=== PATIENT | female | born 1970 | race Caucasian/White ===

== ENCOUNTER → 2018-05-14 | Outpatient (CLI) | payer BC ==
--- NOTE | 2018-05-17 08:48 | MM ---
Reason for exam: screening (asymptomatic). Last mammogram was performed 1 year and 2 months ago. History: Patient is nulliparous. Family history of breast cancer in grandmother at age 70. Took hormonal contraceptives for 13 years beginning at age 14. Took progesterone for 5 years beginning at age 19. Physical Findings: A clinical breast exam by your physician is recommended on an annual basis and results should be correlated with mammographic findings. MG 3D Screening Mammo W/Cad Bilateral CC and MLO view(s) were taken. Prior study comparison: March 16, 2017, bilateral MG screening mammo w CAD. March 01, 2016, right breast MG work up mamm w CAD RT. The breast tissue is heterogeneously dense. This may lower the sensitivity of mammography. No significant changes when compared with prior studies. ASSESSMENT: Negative, BI-RAD 1 RECOMMENDATION: Routine screening mammogram of both breasts in 1 year.
== END | disposition home or self-care (01) ==
LOC: RADMAMWWP 13:45
PROVIDERS: ATTEND Obstetrics & Gynecology
DX: Z12.31 Encounter for screening mammogram for malignant neoplasm of breast (principal); Z80.3 Family history of malignant neoplasm of breast
CPT/HCPCS: 77063; 77067

== ENCOUNTER → 2021-05-09 | Outpatient (CLI) | payer OTHER ==
--- NOTE | 2021-05-09 17:00 | ECHOF ---
Referral Reason:R55 syncope and collapse MEASUREMENTS -------- HEIGHT: 175.3 cm WEIGHT: 65.8 kg BP: IVSd: 0.9 cm (0.6 - 1.1) LVIDd: 4.7 cm (3.9 - 5.3) LVPWd: 0.8 cm (0.6 - 1.1) EDV(Teich): 103 ml IVSs: 1.1 cm LVIDs: 3.1 cm LVPWs: 1.4 cm %IVS Thck: 34 % ESV(Teich): 38 ml EF(Teich): 63 % %FS: 34 % SV(Teich): 65 ml LA Diam: 2.4 cm (2.7 - 3.8) RVIDd: 2.4 cm (< 3.3) Ao Diam: 2.6 cm (2.0 - 3.7) LA Diam: 3.6 cm (2.7 - 3.8) AV Cusp: 1.8 cm (1.5 - 2.6) EPSS: 0.3 cm MV E Jose Miguel: 0.53 m/s MV DecT: 220 ms MV Dec [place]: 2.4 m/s MV A Jose Miguel: 0.66 m/s MV E/A Ratio: 0.81 MV PHT: 64 ms TR Vmax: 2.27 m/s TR maxP.57 mmHg RAP: 5.00 mmHg RVSP: 25.57 mmHg MV EF SLOPE: 94.34 mm/s (70 - 150) MV EXCURSION: 28.76 mm (> 18.000) FINDINGS -------- Sinus rhythm. This was a technically good study. The left ventricular size is normal. Left ventricular wall thickness is normal. Overall left vent ricular systolic function is mildly impaired with, an EF between 45 - 50 %. Posterior hypokinesis Inferior Hypokinesis The right ventricle is normal in size. The left atrial size is normal. The right atrial size is normal. The aortic valve is trileaflet, and appears structurally normal. No aortic stenosis or regurgitation. Mild mitral regurgitation is present. Mild tricuspid regurgitation present. Right ventricular systolic pressure is normal at < 35 mmHg. There is no pulmonic regurgitation present. There is no pericardial effusion. CONCLUSIONS -------- 1. The left ventricular size is normal. 2. Left ventricular wall thickness is normal. 3. Overall left ventricular systolic function is mildly impaired with, an EF between 45 - 50 %. 4. Posterior hypokinesis 5. Inferior Hypokinesis 6. The right ventricle is normal in size. 7. The left atrial size is normal. 8. The right atrial size is normal. 9. The aortic valve is trileaflet, and appears structurally normal. No aortic stenosis or regurgitati on. 10. Mild mitral regurgitation is present. 11. Mild tricuspid regurgitation present. 12. There is no pericardial effusion. INDUSTRIAL DESIGN INTERN: Meghan Briggs RDCS
== END | disposition home or self-care (01) ==
LOC: RADECHMAIN 13:12
PROVIDERS: ATTEND Family Medicine
DX: I08.1 Rheumatic disorders of both mitral and tricuspid valves (principal)
CPT/HCPCS: 93306

== ENCOUNTER → 2021-06-21 | Outpatient (CLI) | payer OTHER ==
[2021-06-21 17:13] LABS: Amylase 71 U/L (23-121); C Reactive Protein <0.30 mg/dL (0.00-0.80); Lipase 74 U/L (14-63)
[2021-06-21 18:24] LABS: Rheumatoid Factor, Qnt <10 IU/mL (0-15)
[2021-06-21 18:38] LABS: Magnesium 2.4 mg/dL (1.5-2.4)
[2021-06-21 20:52] LABS: Insulin Level 10.8 mIU/mL (3.0-25.0)
== END | disposition home or self-care (01) ==
LOC: LABWHC1 07:57
PROVIDERS: ATTEND Nurse Practitioner Adult Health
DX: M06.9 Rheumatoid arthritis, unspecified (principal); R63.4 Abnormal weight loss; R25.1 Tremor, unspecified; R55 Syncope and collapse; H53.8 Other visual disturbances
CPT/HCPCS: 36415; 82024; 82150; 82306; 82533; 82607; 82626; 82746; 83525; 83690; 83735; 85652; 86038; 86039; 86140; 86431; 86592; 86618

== ENCOUNTER 2021-06-27 11:14 | Emergency (ER) | payer OTHER ==
[2021-06-27] MEDS ORDERED: SODIUM CHLORIDE 0.9% 1,000 ML IV STA (13:52)
[2021-06-27] MEDS ORDERED: SODIUM CHLORIDE 0.9% 500 ML 500 ML IV STA (13:52)
--- NOTE | 2021-06-27 13:57 | ED ---
General Adult HPI - General Source: patient, family, RN notes reviewed Limitations: no limitations <Norman Mae - Last Filed: 06/27/21 15:40> <Romie Woods - Last Filed: 06/27/21 17:19> - General Chief complaint: Recheck/Abnormal Lab/Rx Stated complaint: post facial injury/vomiting Time Seen by Provider: 06/27/21 13:39 - History of Present Illness Initial comments: This is a 50-year-old female presents emergency Department chief complaint of facial pain, nausea vomiting. Patient states that she's been having pain ever since she had a fracture from fall in April. Patient states she recently had extraction of her front [address] Melo on . Patient states that she did have increasing symptoms initially started her root canal prior to this. Patient developed a fever today that she was not aware of prior arrival. Patient states she's had increasing nausea with dry heaving today. She complains of epigastric discomfort after her episode. Patient had no sick contacts. She states she's is very weak feeling, states she's not been eating and drinking well. (Norman Mae) - Related Data Home Medications Medication Instructions Recorded Confirmed Guaifen/Phenyleph/Acetaminophn 1 tab PO Q6H PRN 06/27/21 06/27/21 [Tylenol Sinus Severe Caplet] Previous Rx's Medication Instructions Recorded Cephalexin [Keflex] 500 mg PO QID #40 cap 06/27/21 Allergies Allergy/AdvReac Type Severity Reaction Status Date / Time amoxicillin Allergy Severe Rash/Hives, Verified 06/27/21 15:57 Swelling of mouth and throat Penicillins Allergy Severe Rash/Hives, Verified 06/27/21 15:57 Swelling of mouth and throat ibuprofen AdvReac Unknown Verified 06/27/21 11:54 Sulfa (Sulfonamide AdvReac Nausea & Verified 06/27/21 11:54 Antibiotics) Vomiting Review of Systems ROS Other: All systems not noted in ROS Statement are negative. <Norman Mae - Last Filed: 06/27/21 15:40> ROS Other: All systems not noted in ROS Statement are negative. <Romie Woods - Last Filed: 06/27/21 17:19> ROS Statement: Those systems with pertinent positive or pertinent negative responses have been documented in the HPI. Past Medical History Past Medical History: No Reported History History of Any Multi-Drug Resistant Organisms: None Reported Past Surgical History: Back Surgery Past Psychological History: No Psychological Hx Reported Smoking Status: Never smoker Past Alcohol Use History: None Reported Past Drug Use History: None Reported <Norman Mea - Last Filed: 06/27/21 15:40> General Exam Limitations: no limitations General appearance: alert, in no apparent distress Head exam: Present: atraumatic, normocephalic, normal inspection Eye exam: Present: normal appearance, PERRL, EOMI. Absent: scleral icterus, conjunctival injection, periorbital swelling ENT exam: Present: mucous membranes moist. Absent: normal oropharynx (Recent tooth extraction upper 7 and 8, no significant bleeding or purulent drainage noted) Neck exam: Present: normal inspection, full ROM. Absent: tenderness, meningismus, lymphadenopathy Respiratory exam: Present: normal lung sounds bilaterally. Absent: respiratory distress, wheezes, rales, rhonchi, stridor Cardiovascular Exam: Present: regular rate, normal rhythm, normal heart sounds. Absent: systolic murmur, diastolic murmur, rubs, gallop, clicks GI/Abdominal exam: Present: soft, tenderness (Mild epigastric), normal bowel sounds. Absent: distended, guarding, rebound, rigid Neurological exam: Present: alert, oriented X3 Skin exam: Present: warm, dry, intact, normal color. Absent: rash <Norman Mae - Last Filed: 06/27/21 15:40> Course <Romie Woods - Last Filed: 06/27/21 17:19> Vital Signs 06/27/21 06/27/21 06/27/21 11:54 14:55 16:00 Temperature 100.2 F H 98.6 F Pulse Rate 87 70 78 Respiratory 16 18 18 Rate Blood Pressure 120/72 125/74 130/70 O2 Sat by Pulse 98 100 100 Oximetry - Reevaluation(s) Reevaluation #1: 06/27/21 16:56 Patient reexamined and reevaluated by myself, Dr. Woods. I do agree with PAs findings. This includes diagnostic interpretation and treatment plan. Patient states injury happened several months ago and has been having problems for months. Patient did have dental extraction just or days ago. Patient did have fever today. Patient has discomfort that is been fairly similar to her chronic discomfort in the anterior maxillary region. No worsening or new headaches. No new neck stiffness. No meningismus on exam. Dental exam with recent extraction of central upper incisors. No obvious infection, swelling, discharge or erythema. 06/27/21 17:16 Case discussed in detail with Dr. Melo including results and computed tomography scan, who will follow up with patient tomorrow. He is in agreement with Keflex. (Romie Woods) Medical Decision Making - Lab Data Result diagrams: 06/27/21 14:12 06/27/21 14:12 <Norman Mae - Last Filed: 06/27/21 15:40> - Lab Data Result diagrams: 06/27/21 14:12 06/27/21 14:12 - Radiology Data Radiology results: report reviewed (Computed tomography scan of facial bones without contrast shows 2 central maxillary incisors absent. Empty sockets contain small amount of fluid or some granulation tissue. Punctate remain fragment may be present. No acute fracture seen. Trace mucosal thickening ethmoid air cells. Asymmetric th), image reviewed (Chest x-ray shows no acute process) <Romie Woods - Last Filed: 06/27/21 17:19> - Medical Decision Making 50-year-old female presented for facial pain and fever. Did initiate workup including labs, CT, x-ray urinalysis including influenza and covid19 testing. Patient refused CT of the brain she states that she has CT of brain recently at [facility] I did explain that she did have some new changes again refuses stating that she has has an MRI tomorrow. She understands risk of refusing this. Patient was sent for CT facial bones with contrast she refuses while in CT stating that she may have an ALLERGY as she has penicillin ALLERGIES she is explain that she has no history of iodine ALLERGY as a low probability patient again refuses. CT was performed without contrast. (Norman Mae) - Lab Data Lab Results 06/27/21 06/27/21 06/27/21 Range/Units 14:12 14:12 14:12 WBC 5.8 (3.8-10.6) k/uL RBC 4.44 (3.80-5.40) m/uL Hgb 14.9 (11.4-16.0) gm/dL Hct 45.1 (34.0-46.0) % MCV 101.6 H (80.0-100.0) fL MCH 33.5 (25.0-35.0) pg MCHC 33.0 (31.0-37.0) g/dL RDW 12.1 (11.5-15.5) % Plt Count 187 (150-450) k/uL MPV 8.0 Neutrophils % 76 % Lymphocytes % 14 % Monocytes % 7 % Eosinophils % 1 % Basophils % 0 % Neutrophils # 4.4 (1.3-7.7) k/uL Lymphocytes # 0.8 L (1.0-4.8) k/uL Monocytes # 0.4 (0-1.0) k/uL Eosinophils # 0.1 (0-0.7) k/uL Basophils # 0.0 (0-0.2) k/uL Sodium 140 (137-145) mmol/L Potassium 3.7 (3.5-5.1) mmol/L Chloride 106 (98-107) mmol/L Carbon Dioxide 26 (22-30) mmol/L Anion Gap 8 mmol/L BUN 14 (7-17) mg/dL Creatinine 0.72 (0.52-1.04) mg/dL Est GFR (CKD-EPI)AfAm >90 (>60 ml/min/1.73 sqM) Est GFR (CKD-EPI)NonAf >90 (>60 ml/min/1.73 sqM) Glucose 91 (74-99) mg/dL Plasma Lactic Acid Andres 1.0 (0.7-2.0) mmol/L Calcium 9.5 (8.4-10.2) mg/dL Magnesium 2.4 H (1.6-2.3) mg/dL Total Bilirubin 0.9 (0.2-1.3) mg/dL AST 22 (14-36) U/L ALT 12 (4-34) U/L Alkaline Phosphatase 76 (38-126) U/L Total Protein 8.0 (6.3-8.2) g/dL Albumin 4.6 (3.5-5.0) g/dL Urine Color Urine Appearance (Clear) Urine pH (5.0-8.0) Ur Specific [place] (1.001-1.035) Urine Protein (Negative) Urine Glucose (UA) (Negative) Urine Ketones (Negative) Urine Blood (Negative) Urine Nitrite (Negative) Urine Bilirubin (Negative) Urine Urobilinogen (<2.0) mg/dL Ur Leukocyte Esterase (Negative) Coronavirus (PCR) (Not Detectd) Influenza Type A RNA (Not Detectd) Influenza Type B (PCR) (Not Detectd) 06/27/21 06/27/21 06/27/21 Range/Units 14:49 14:49 14:49 WBC (3.8-10.6) k/uL RBC (3.80-5.40) m/uL Hgb (11.4-16.0) gm/dL Hct (34.0-46.0) % MCV (80.0-100.0) fL MCH (25.0-35.0) pg MCHC (31.0-37.0) g/dL RDW (11.5-15.5) % Plt Count (150-450) k/uL MPV Neutrophils % % Lymphocytes % % Monocytes % % Eosinophils % % Basophils % % Neutrophils # (1.3-7.7) k/uL Lymphocytes # (1.0-4.8) k/uL Monocytes # (0-1.0) k/uL Eosinophils # (0-0.7) k/uL Basophils # (0-0.2) k/uL Sodium (137-145) mmol/L Potassium (3.5-5.1) mmol/L Chloride (98-107) mmol/L Carbon Dioxide (22-30) mmol/L Anion Gap mmol/L BUN (7-17) mg/dL Creatinine (0.52-1.04) mg/dL Est GFR (CKD-EPI)AfAm (>60 ml/min/1.73 sqM) Est GFR (CKD-EPI)NonAf (>60 ml/min/1.73 sqM) Glucose (74-99) mg/dL Plasma Lactic Acid Andres (0.7-2.0) mmol/L Calcium (8.4-10.2) mg/dL Magnesium (1.6-2.3) mg/dL Total Bilirubin (0.2-1.3) mg/dL AST (14-36) U/L ALT (4-34) U/L Alkaline Phosphatase (38-126) U/L Total Protein (6.3-8.2) g/dL Albumin (3.5-5.0) g/dL Urine Color Colorless Urine Appearance Clear (Clear) Urine pH 6.5 (5.0-8.0) Ur Specific [place] 1.004 (1.001-1.035) Urine Protein Negative (Negative) Urine Glucose (UA) Negative (Negative) Urine Ketones 1+ H (Negative) Urine Blood Negative (Negative) Urine Nitrite Negative (Negative) Urine Bilirubin Negative (Negative) Urine Urobilinogen <2.0 (<2.0) mg/dL Ur Leukocyte Esterase Negative (Negative) Coronavirus (PCR) Not Detected (Not Detectd) Influenza Type A RNA Not Detected (Not Detectd) Influenza Type B (PCR) Not Detected (Not Detectd) Disposition <Norman Mae - Last Filed: 06/27/21 15:40> Is patient prescribed a controlled substance at d/c from ED?: No Time of Disposition: 17:18 <Romie Woods - Last Filed: 06/27/21 17:19> Clinical Impression: Dentalgia Disposition: HOME SELF-CARE Condition: Stable Instructions (If sedation given, give patient instructions): Toothache (ED) Additional Instructions: Please do follow-up tomorrow with Dr. Melo. Return for worsening or change in symptoms, persistent fevers, or any other concerns. Prescription for Keflex has been sent to Your pharmacy. Prescriptions: Cephalexin [Keflex] 500 mg PO QID #40 cap Referrals: Federico Guillory MD [Primary Care Provider] - 1-2 days Oneil Melo DDS [STAFF PHYSICIAN] - 1-2 days
[2021-06-27 14:38] LABS: Basophils % (A) 0 %; Eosinophils # (A) 0.1 k/uL (0-0.7); Eosinophils % (A) 1 %; HCT 45.1 % (34.0-46.0); HGB 14.9 gm/dL (11.4-16.0); Lymphocytes # (A) 0.8 k/uL (1.0-4.8); Lymphocytes % (A) 14 %; MCH 33.5 pg (25.0-35.0); MCV 101.6 fL (80.0-100.0); Monocytes # (A) 0.4 k/uL (0-1.0); Monocytes % (A) 7 %; Neutrophils # (A) 4.4 k/uL (1.3-7.7); Neutrophils % (A) 76 %; Platelet Count 187 k/uL (150-450); RBC 4.44 m/uL (3.80-5.40); RDW 12.1 % (11.5-15.5); WBC 5.8 k/uL (3.8-10.6)
[2021-06-27 14:40] LABS: ALT 12 U/L (4-34); AST 22 U/L (14-36); African American GFR (CKD) >90 (>60 ml/min/1.73 sqM); Albumin 4.6 g/dL (3.5-5.0); Alkaline Phosphatase 76 U/L (38-126); Anion Gap 8 mmol/L; Blood Urea Nitrogen 14 mg/dL (7-17); Calcium 9.5 mg/dL (8.4-10.2); Carbon Dioxide 26 mmol/L (22-30); Chloride 106 mmol/L (98-107); Glucose 91 mg/dL (74-99); Magnesium 2.4 mg/dL (1.6-2.3); Non-African American GFR(CKD) >90 (>60 ml/min/1.73 sqM); Potassium 3.7 mmol/L (3.5-5.1); Sodium 140 mmol/L (137-145); Total Bilirubin 0.9 mg/dL (0.2-1.3)
[2021-06-27 14:57] VITALS: RESP 18
[2021-06-27 15:15] LABS: Appearance,Urine Clear (Clear); Bilirubin,Urine Negative (Negative); Blood,Urine Negative (Negative); Color,Urine Colorless; Glucose,Urine (UA) Negative (Negative); Ketones,Urine 1+ (Negative); Leukocyte Esterase,Urine Negative (Negative); Nitrite,Urine Negative (Negative); PH, Urine 6.5 (5.0-8.0); Protein,Urine Negative (Negative); Specific Gravity,Urine 1.004 (1.001-1.035); Urobilinogen,Urine <2.0 mg/dL (<2.0)
--- NOTE | 2021-06-27 15:31 | XR ---
EXAMINATION TYPE: XR chest 2V DATE OF EXAM: 06/27/2021 COMPARISON: NONE HISTORY: Chest pain TECHNIQUE: Frontal and lateral views of the chest are obtained. FINDINGS: There is no focal air space opacity. No evidence for pneumothorax. No pleural effusion. The cardiac silhouette size is within normal limits. The osseous structures are grossly intact. IMPRESSION: 1. No acute cardiopulmonary process.
--- NOTE | 2021-06-27 15:53 | CT ---
EXAMINATION TYPE: CT facial bones wo con DATE OF EXAM: 06/27/2021 COMPARISON: None HISTORY: 50-year-old female Headache, fever, pain, and pressure. Known facial injury in Apr 2021. TECHNIQUE: Contiguous axial scanning of the facial bones without IV contrast. Coronal reconstructions performed. CT DLP: 576 mGycm Automated exposure control for dose reduction was used. FINDINGS: Visualized intracranial structures show no abnormality. Orbits and globes mastoid air cells appear clear. Trace mucosal thickening ethmoid air cells. Otherwise, frontal, maxillary, and sphenoid sinuses appea r well pneumatized. Very minimal rightward nasal septal bowing. No acute facial bone fracture seen. The patient's 2 central maxillary incisors are absent and there is either trace fluid or some granula tion tissue partially filling the sockets. A punctate retained fragment may be present deep within th e right socket (coronal image 15). The TMJs are intact. Atrophic parotid glands. The submandibular glands are satisfactory. Asymmetric thickening left aryepiglottic fold likely positional. If symptomatic, direct visualization can be performed to exclude a mucosal lesion. IMPRESSION: 1. THE 2 CENTRAL MAXILLARY INCISORS ARE ABSENT. THE EMPTY SOCKETS CONTAIN A SMALL AMOUNT OF FLUID OR SOME GRANULATION TISSUE. A PUNCTATE RETAINED FRAGMENT MAY BE PRESENT DEEP WITHIN THE RIGHT SOCKET (CO RE IMAGE 15). NO ACUTE FACIAL BONE FRACTURE SEEN. 2. ONLY TRACE MUCOSAL THICKENING IN THE ETHMOID AIR CELLS. 3. ASYMMETRIC THICKENING OF THE LEFT ARYEPIGLOTTIC FOLD MAY BE POSITIONAL. IF SYMPTOMATICALLY THE PAT IENT HAS RISK FACTORS, DIRECT VISUALIZATION TO EXCLUDE A MUCOSAL LESION.
[2021-06-27] MEDS ORDERED: ACETAMINOPHEN TAB 500 MG TAB PO STA (15:59)
[2021-06-27] MEDS ORDERED: CEPHALEXIN 250 MG CAP PO STA (17:18)
[2021-06-27 17:45] VITALS: BP 127/68; PULSE 71; TEMP 98.2
== END 2021-06-27 17:47 | disposition home or self-care (01) ==
LOC: EC 11:14
DX: K08.89 Other specified disorders of teeth and supporting structures (principal); R10.13 Epigastric pain; Z20.822 Contact with and (suspected) exposure to COVID-19
CPT/HCPCS: 36415; 70486; 71046; 80053; 81003; 83605; 83735; 85025; 87502; 87635; 96360; 99284

== ENCOUNTER → 2021-06-28 | Outpatient (CLI) | payer OTHER ==
--- NOTE | 2021-06-28 16:13 | MR ---
EXAMINATION TYPE: MR brain wo con DATE OF EXAM: 06/28/2021 COMPARISON: NONE HISTORY: 50 year-old female H53.8, blurring of visual image, Vision changes, pressure in head, passed out 04-18-21 & fell on face. TECHNIQUE: Multiplanar, multisequence images of the brain and brainstem were acquired without IV con trast. Diffusion weighted imaging is performed. Additional axial gradient T2* image. FINDINGS: No evidence for acute infarction, hemorrhage, mass, mass effect, midline shift, herniation, effacemen t of basal cisterns, or extra-axial fluid collection. The ventricles and sulci are age-appropriate. Major intracranial flow voids are intact. T2/FLAIR weighted sequences show no white matter signal abnormality. Gradient sequences show no suspi cious susceptibility to suggest prior intracranial bleeding. Midline structures demonstrate normal morphology. The craniocervical junction is normal. The visualized sinuses are clear and the globes are intact. IMPRESSION: No intracranial abnormality seen.
== END | disposition home or self-care (01) ==
LOC: RADMRIMAIN 12:15
PROVIDERS: ATTEND Nurse Practitioner Adult Health
DX: H53.8 Other visual disturbances (principal)
CPT/HCPCS: 70551

== ENCOUNTER 2023-02-09 08:13 | Day surgery (SDC) | payer OTHER ==
[2023-02-07 15:13] VITALS: BMI 19.9
[~2023-02-09 08:13] MED LIST: LACTATED RINGERS 1,000 ML IV SCH
[2023-02-09] MEDS ORDERED: LACTATED RINGERS 1,000 ML IV ONE ×2 (08:41)
[2023-02-09 09:01] LABS: Glucose,Whole Blood 68 mg/dL (70-110)
[2023-02-09 09:05] VITALS: TEMP 98
[2023-02-09] MEDS ORDERED: DEXTROSE 50% SYRINGE 50 ML IVP ONE (09:07)
[2023-02-09 09:33] LABS: Glucose,Whole Blood 96 mg/dL (70-110)
[2023-02-09] MEDS ORDERED: MIDAZOLAM 2 MG/2 ML VIAL ONE (09:56)
[2023-02-09] MEDS ORDERED: fentaNYL (PF) 50 MCG/ML 2 ML AMP ONE (09:56)
[2023-02-09] MEDS ORDERED: LIDOCAINE 1% INJ 10MG/ML (20 ML MDV) ONE (09:56)
[2023-02-09] MEDS ORDERED: PROPOFOL 10 MG/ML 20 ML VIAL IV ONE (09:56)
--- NOTE | 2023-02-09 10:26 | P.PCN ---
Date of Procedure: 02/09/23 Procedure(s) Performed: Brief history: Patient is a pleasant 52-year-old white female scheduled for an elective upper endoscopy as well as colonoscopy as a part of evaluation of abdominal pain, progressive weight loss and chronic diarrhea of several months duration. Procedure performed: Esophagogastroduodenoscopy with biopsy Colonoscopy with biopsy Preoperative diagnosis: Abdominal pain/chronic diarrhea and progressive weight loss of several months duration Anesthesia: MAC Procedure: After informed consent was obtained from the patient was brought into the endoscopy unit and IV sedation was administered by anesthesia under continuous monitoring. Initially upper endoscopy was done. The Olympus GF 160 video endoscope was inserted inserted into the mouth and esophagus intubated without any difficulty and was gradually advanced into the stomach and duodenum and carefully examined. The bulb and second part of the duodenum appeared normal. Biopsies were done from the duodenum to rule out celiac disease. The scope was then withdrawn into the stomach adequately insufflated with air and upon careful examination the antrum had mild gastritis and biopsies were done from this area. Mucosa of the body, cardia and fundus appeared normal. The scope was then withdrawn into the esophagus. The GE junction was located at 40 cm to the incisors. It appeared regular with no erythema erosions or ulcerations. Rest of the esophagus appeared normal. Patient tolerated the procedure well. At this time the patient continued to remain sedation. Initial digital rectal examination was normal. Olympus CF 160 video colonoscope was then inserted into the rectum and gradually advanced to the cecum without any difficulty. Careful examination was performed as the scope was gradually being withdrawn. The prep was excellent. The cecum, ascending colon, transverse colon, descending colon, sigmoid colon and rectum appeared normal. Biopsies were done from ascending and descending colon to rule out microscopic/collagenous colitis Retroflexion was performed in the rectum and no lesions were noted. Patient tolerated the procedure well. Impression: 1. Upper endoscopy revealed mild antral gastritis but no evidence of esophagitis or peptic ulcer disease 2. Colonoscopy revealed grade 2 internal hemorrhoids but no evidence of colorectal neoplasia. Recommendations: Findings of this examination were discussed with the patient as well as his family. She was advised to follow with the biopsy results. She'll be seen in office in 2 weeks.
[2023-02-09 10:38] LABS: Glucose,Whole Blood 89 mg/dL (70-110)
[2023-02-09 10:50] VITALS: BP 127/77; PULSE 74; RESP 16
== END 2023-02-09 11:00 | disposition home or self-care (01) ==
LOC: ORWHC2ENDO 08:13
PROVIDERS: ATTEND Internal Medicine Gastroenterology
DX: K29.50 Unspecified chronic gastritis without bleeding (principal); K52.9 Noninfective gastroenteritis and colitis, unspecified; R63.4 Abnormal weight loss; K64.1 Second degree hemorrhoids; I34.1 Nonrheumatic mitral (valve) prolapse; K21.9 Gastro-esophageal reflux disease without esophagitis; Z88.0 Allergy status to penicillin; Z88.2 Allergy status to sulfonamides; F65.89 Other paraphilias; Z91.040 Latex allergy status
CPT/HCPCS: 81025; 88305; 45380; 43239; J2250; J2001; J3010; J2704

== ENCOUNTER → 2023-11-02 | Outpatient (CLI) | payer MEDICARE, OTHER ==
--- NOTE | 2023-11-04 13:47 | MM ---
Reason for Exam: Screening (asymptomatic). Last mammogram was performed 5 year(s) and 6 month(s) ago. Patient History: Menarche at age 12. Patient has no children. Progesterone for 5 years from age 19 until age 24. Hormonal Contraceptives for 13 years from age 14 until age 27. Maternal grandmother had breast cancer, age 70. Risk Values: Amber 5 year model risk: 1.3%. NCI Lifetime model risk: 9.3%. Prior Study Comparison: 03/01/2016 Right Diagnostic Mammogram, [facility]. 03/16/2017 Bilateral Screening Mammogram, [facility]. 05/14/2018 Bilateral Screening Mammogram, [facility]. Tissue Density: The breasts are heterogeneously dense, which may obscure small masses. Findings: Analyzed By CAD. The pattern is symmetrical. There is a small round calcifications in the upper outer right breast. Additional workup is recommended. This may be a change. Left breast:No suspicious groups of microcalcifications, spiculated or lobular masses, architectural distortion or other secondary signs of malignancy are mammographically apparent. Overall Assessment: Incomplete: need additional imaging evaluation, BI-RAD 0 Management: Diagnostic Mammogram of the right breast. A negative mammogram report should not preclude additional follow up of suspicious palpable abnormalities. Patient should continue monthly self breast exam. A clinical breast exam by your physician is recommended on an annual basis and results should be correlated with mammographic findings. Note on Amber scores and lifetime risk: 1. A Amber score greater than 3% is considered moderate risk. If this is the case, consider specialist referral to assess eligibility for a risk reducing agent. 2. If overall lifetime risk for the development of breast cancer is 20% or higher, the patient may qualify for future screening with alternating mammogram and breast MRI. Electronically signed and approved by: Bentley Lomas D.O. Radiologis
== END | disposition home or self-care (01) ==
LOC: RADMAMWWP 14:18
PROVIDERS: ATTEND Family Medicine
DX: Z12.31 Encounter for screening mammogram for malignant neoplasm of breast (principal); R92.333 Mammographic heterogeneous density, bilateral breasts; Z80.3 Family history of malignant neoplasm of breast
CPT/HCPCS: 77063; 77067

== ENCOUNTER → 2023-11-07 | Outpatient (CLI) | payer MEDICARE, OTHER ==
--- NOTE | 2023-11-07 11:15 | MM ---
Reason for Exam: Additional evaluation requested from abnormal screening. Last screening mammogram was performed less than 1 month ago. Patient History: Menarche at age 12. Patient has no children. Progesterone for 5 years from age 19 until age 24. Hormonal Contraceptives for 13 years from age 14 until age 27. Maternal grandmother had breast cancer, age 70. Risk Values: Amber 5 year model risk: 1.3%. NCI Lifetime model risk: 9.3%. Tissue Density: Right: The breasts are heterogeneously dense, which may obscure small masses. Findings: Analyzed By CAD. Indeterminate calcifications upper outer right breast 5 cm from the nipple. Stereotactic core biopsy is recommended. Overall Assessment: Suspicious, BI-RAD 4 Management: Stereotactic Core Biopsy of the right breast. . Results were given to the patient verbally at the time of exam. Patient should continue monthly self-breast exams. A clinical breast exam by your physician is recommended on an annual basis. This exam should not preclude additional follow-up of suspicious palpable abnormalities. Note on Amber scores and lifetime risk: 1. A Amber score greater than 3% is considered moderate risk. If this is the case, consider specialist referral to assess eligibility for a risk reducing agent. 2. If overall lifetime risk for the development of breast cancer is 20% or higher, the patient may qualify for future screening with alternating mammogram and breast MRI. Electronically signed and approved by: Jaswinder Rai M.D. Radiologis
== END | disposition home or self-care (01) ==
LOC: RADMAMWWP 10:23
PROVIDERS: ATTEND Family Medicine
DX: R92.8 Other abnormal and inconclusive findings on diagnostic imaging of breast (principal); R92.331 Mammographic heterogeneous density, right breast; Z80.3 Family history of malignant neoplasm of breast
CPT/HCPCS: 77065; G0279; 77061

== ENCOUNTER 2023-12-06 12:42 | Day surgery (SDC) | payer MEDICARE, OTHER ==
--- NOTE | 2023-12-27 15:24 | P.PCN ---
Date of Procedure: 12/27/23 Preoperative Diagnosis: microcalcifactions of concern right breast Postoperative Diagnosis: same Procedure(s) Performed: Right breast stereotactic core biopsy Anesthesia: local Surgeon: Jia Luna Pathology: other (Breast Tissue with microcalcifications present) Condition: stable Disposition: same day Indications for Procedure: Microcalcifications of concern right breast Operative Findings: Calcifications of concern noted in specimen Description of Procedure: The patient is a 53-year-old female status this post screening mammogram which revealed some microcalcifications of concern in the right breast. She was recommended to undergo a stereotactic core biopsy. Risk and benefits of the procedure were discussed with the patient. She was taken to the stereotactic core biopsy room. She was positioned in the upright chair. This is being dictated on 12-27-2023 and I am uncertain as to which approach was utilized. A plasma specialist film was obtained. The area of concern was identified. The breast was prepped using chlorhexidine. The lesion was targeted. 20 cc of 1% lidocaine were used to anesthetize the area of concern. A 9 gauge vacuum-assisted core rotating biopsy needle was driven to the correct coordinates. Prefire film was obtained and the needle was noted to be in the correct location. The needle was fired. The needle was noted to be in the correct location. Core biopsy specimens were obtained and radiograph of the specimen revealed the area of concern had been adequately sampled. A secure simone Top-Hat clip was deployed. The patient tolerated the procedure in stable condition. All instrument and sponge counts were correct at the end of the case.
--- NOTE | 2023-12-28 09:27 | MM ---
Date of Procedure: 12/27/23 Preoperative Diagnosis: microcalcifactions of concern right breast Postoperative Diagnosis: same Procedure(s) Performed: Right breast stereotactic core biopsy Anesthesia: local Surgeon: Jia Luna Pathology: other (Breast Tissue with microcalcifications present) Condition: stable Disposition: same day Indications for Procedure: Microcalcifications of concern right breast Operative Findings: Calcifications of concern noted in specimen Description of Procedure: The patient is a 53-year-old female status this post screening mammogram which revealed some microcalcifications of concern in the right breast. She was recommended to undergo a stereotactic core biopsy. Risk and benefits of the procedure were discussed with the patient. She was taken to the stereotactic core biopsy room. She was positioned in the upright chair. This is being dictated on 12-27-2023 and I am uncertain as to which approach was utilized. A wood products manufacturer film was obtained. The area of concern was identified. The breast was prepped using chlorhexidine. The lesion was targeted. 20 cc of 1% lidocaine were used to anesthetize the area of concern. A 9 gauge vacuum-assisted core rotating biopsy needle was driven to the correct coordinates. Prefire film was obtained and the needle was noted to be in the correct location. The needle was fired. The needle was noted to be in the correct location. Core biopsy specimens were obtained and radiograph of the specimen revealed the area of concern had been adequately sampled. A secure simone Top-Hat clip was deployed. The patient tolerated the procedure in stable condition. All instrument and sponge counts were correct at the end of the case. [facility]
== END 2023-12-06 14:53 ==
LOC: RADMAMWWP 12:42
PROVIDERS: ATTEND Surgery
DX: N60.31 Fibrosclerosis of right breast (principal); N61.0 Mastitis without abscess; R92.8 Other abnormal and inconclusive findings on diagnostic imaging of breast
CPT/HCPCS: 88305

== ENCOUNTER → 2023-12-06 | Outpatient (CLI) | payer MEDICARE, OTHER | LOC: WWCWWP 12:21 | PROVIDERS: ATTEND Surgery | DX: R92.8 Other abnormal and inconclusive findings on diagnostic imaging of breast (principal); R92.0 Mammographic microcalcification found on diagnostic imaging of breast; Z88.0 Allergy status to penicillin; Z88.6 Allergy status to analgesic agent; Z88.2 Allergy status to sulfonamides; Z91.011 Allergy to milk products; Z91.018 Allergy to other foods; Z91.040 Latex allergy status; Z88.8 Allergy status to other drugs, medicaments and biological substances ==

== ENCOUNTER → 2023-12-12 | Outpatient (CLI) | payer MEDICARE, OTHER ==
[2023-12-12 11:49] VITALS: BP 112/75; PULSE 62; RESP 18; TEMP 98.3
--- NOTE | 2023-12-12 11:52 | P.PN ---
Subjective Progress Note Date: 12/12/23 Principal diagnosis: biopsy right breast stero 11-07-23 Damian is a 53 year old status post right breast stero biopsy on 12-06-23. Her pathology is not yet available. She is doing well but we are awaiting pathology results Examination: Lungs clear: Heart: Regular rate and rhythm Biopsy site clean and dry no evidence of ecchymosis or hematoma or infection Plan: Await pathology, will call next week for the results Repeat right breast mammogram in 6 months if pathology is benign with appointment at that time CC: Dr. Rowland Objective - Vital Signs Vital signs: Intake & Output 12/11/23 12/12/23 12/12/23 18:59 06:59 18:59 Weight 67.132 kg
== END ==
LOC: WWCWWP 11:02
PROVIDERS: ATTEND Surgery
DX: Z04.89 Encounter for examination and observation for other specified reasons (principal); Z98.890 Other specified postprocedural states; Z88.6 Allergy status to analgesic agent; Z88.0 Allergy status to penicillin; Z91.018 Allergy to other foods; Z88.8 Allergy status to other drugs, medicaments and biological substances; Z91.040 Latex allergy status; Z88.2 Allergy status to sulfonamides; Z91.011 Allergy to milk products